=== PATIENT | male | born 1980 | race Caucasian/White ===

== ENCOUNTER 2024-04-09 21:56 | Observation (INO) ==
[2024-04-09] MEDS ORDERED: 0.9 % SODIUM CHLORIDE 1000 ML 1,000 ML IV ONE (22:29)
--- NOTE | 2024-04-09 22:49 | Emergency Department Note ---
HPI - Abdominal Pain General Chief Complaint: Abdominal Pain Stated Complaint: ABDOMINAL PAIN Time Seen by Provider: 04/09/24 22:05 Source: family Source comment: Family member/POA Mode of arrival: walk-in Limitations: physical limitation and other Limitations comment: Patient has hx of brain cancer resulting in difficulty with communication History of Present Illness HPI narrative: 43-year-old male presents to ER with complaint of right lower quadrant abdominal pain x 1 day, patient was seen here last week and admitted for abdominal pain due to intractable nausea vomiting with decreased electrolytes and dehydration. Patient was discharged on Thursday of this week reports pain came back today. MD elicited complaint: abdominal pain Pertinent past history: gastritis and past UTI Onset (ago): day(s) (1) Pain Consistency: constant Location: RUQ and RLQ Severity: moderate Quality: cramping, aching and sharp Radiation: none Migration to: no migration Exacerbating factors: movement and other (Palpation) Relieving factors: nothing Context: history of similar episodes Associated symptoms: nausea and other (Pain) Related Data Home Medications Medication Instructions Recorded Confirmed apixaban 5 mg tablet (Eliquis) 5 mg PO BID 04/05/24 04/05/24 cholecalciferol (vitamin D3) 1,250 50,000 unit PO QWEEK 04/05/24 04/05/24 mcg (50,000 unit) capsule escitalopram oxalate 20 mg tablet 20 mg PO DAILY 04/05/24 04/05/24 famotidine 20 mg tablet 20 mg PO BID 04/05/24 04/05/24 folic acid 1 mg tablet 1 mg PO DAILY 04/05/24 04/05/24 lamotrigine 150 mg tablet 150 mg PO BID 04/05/24 04/05/24 levetiracetam 500 mg tablet 500 mg PO BID 04/05/24 04/05/24 metoprolol succinate 25 mg 25 mg PO DAILY 04/05/24 04/05/24 tablet,extended release 24 hr mirtazapine 15 mg tablet 7.5 mg PO BEDTIME 04/05/24 04/05/24 nystatin 100,000 unit/gram topical 1 applic topical BID 04/05/24 04/05/24 cream olanzapine 5 mg tablet 5 mg PO BEDTIME 04/05/24 04/05/24 Allergies Allergy/AdvReac Type Severity Reaction Status Date / Time No Known Drug Allergies Allergy Verified 04/09/24 22:07 Review of Systems Status of ROS 10 or more systems reviewed and unremark able except as noted in history and below Constitutional Denies: fever, chills, change in weight, fatigue, malaise, night sweats, change in sleep pattern or other Eyes Denies: change in vision, blurry vision, blind spots, light sensitivity, eye discomfort, eye discharge, dry eyes, increased production of tears, floaters, seeing flashes or decreased night vision Ears, nose, mouth, and throat Denies: throat pain, neck pain, throat swelling, difficulty swallowing, hoarseness, mouth pain, swelling of lips/tongue, dry mouth, bad breath, ear pain, ear discharge, change in hearing, tinnitus, vertigo, nasal discharge, nasal congestion, nose bleeds or post nasal drip Cardiovascular Denies: chest pain, palpitations, edema, swelling of feet/ankles, lightheadedness, shortness of breath with exertion, shortness of breath when lying down, leg pain with exertion or bluish discoloration of hands/feet Respiratory Denies: shortness of breath, cough, wheezing, stridor, pain on inspiration, change in phlegm color, coughing up blood or chest congestion Gastrointestinal Reports: abdominal pain, nausea and vomiting; Denies: coffee grounds in vomit, heartburn, diarrhea, constipation, bloating, belching, excessive passing of gas, difficulty swallowing, feeling full early, change in bowel habits, painful bowel movements, rectal pain, rectal swelling, rectal itching, change in stool character, blood in stool, mucus in stool, white/light colored stool or fatty stool Genitourinary Denies: painful urination, urinary frequency, urinary urgency, blood in urine, genital pain, genital lesion, penile discharge, testicular pain, testicular mass, scrotal swelling, difficulty urinating, nighttime urination, change in urine stream, decreased urine ouput, difficulty starting urination, urinary hesitancy, urinary dribbling, difficulty with ejactulations, painful ejaculations, blood in semen, change in libido or difficulty impregnating Musculoskeletal Denies: back pain, neck pain, extremity pain, extremity swelling, joint pain, limited range of motion, joint swelling, muscle cramps, muscle weakness or loss of height Integumentary/Breast Denies: rash, itching, redness, skin pain, skin tenderness, skin swelling, sores, new lesion, changing lesion, non-healing lesion, changes in skin color, jaundice, stretch painting, acne, nail changes, change in hair, breast pain, breast swelling, nipple discharge, breast mass, breast skin changes or change in breast shape Neurological Denies: headache, numbness in extremities, weakness in extremities, lack of coordination, dizziness, vertigo, confusion, behavioral changes, slurred speech, difficulty communicating thoughts, seizure-like activity or involuntary movements Psychiatric Reports: anxiety; Denies: mood swings, panic attacks, change in sleep pattern, hopelessness, loss of interest, irritability, paranoia, memory loss, difficulty concentrating, visual hallucinations, auditory hallucinations, tactile hallucinations, suicidal ideation or homicidal ideation Endocrine Denies: excessive urination, excessive thirst, fatigue, cold intolerance, excessive sweating, flushing, heat intolerance, deepening of the voice, change in body appearance or change in libido Hematologic/Lymphatic Denies: easy bruising, easy bleeding or enlarged lymph nodes Allergic/Immunologic Denies: hives, throat swelling, tongue swelling, facial swelling, wheezing, itchy eyes, seasonal allergies or food intolerance [facility] Medical History (Updated 04/09/24 @ 22:16 by Izabela Dumas RN) Depression Anxiety Brain cancer Seizures Brain tumor Surgical History H/O brain surgery Social History Smoking status: current every day smoker What tobacco products do you use: cigarettes Within the past year, how often did you have a drink containing alcohol: never Within the past year, how often did you have six or more drinks on one occasion: never Score interpretation: A score less than 4 is consistent with normal alcohol consumption. Problems where you live: no known problems Highest level of school completed/degree received: high school Feel stressed/tense/nervous/anxious/difficulty sleeping: to some extent Life stressors: other (none) Life stressor details: Current medical situation Due to disability, difficulty making decisions: No Exam Constitutional: normal general appearance, distress noted (moderate), average body habitus, limitations noted (physical limitations) and alert Vital Signs - 24 hr 04/09/24 22:00 04/09/24 23:00 04/10/24 00:00 Temperature 97.9 F Pulse Rate 81 78 83 Respiratory Rate 17 16 16 Blood Pressure 144/93 149/86 105/72 Pulse Oximetry 96 95 96 Oxygen Delivery [facility] [facility] Room Air Room Air Room Air 04/10/24 01:00 04/10/24 02:00 04/10/24 03:00 Temperature Pulse Rate 75 74 68 Respiratory Rate 16 16 16 Blood Pressure 123/82 112/73 111/75 Pulse Oximetry 96 97 95 Oxygen Delivery Nj thod Room Air Room Air Room Air 04/10/24 04:00 Temperature Pulse Rate 69 Respiratory Rate Blood Pressure 124/88 Pulse Oximetry [facility] HENMT: normocephalic, head/scalp atraumatic, hearing grossly normal bilaterally, external ears normal, EACs normal, nasal mucous membranes normal, external nose normal, oral mucous membranes normal, oropharynx normal, dentition abnormal (caries) and gingiva normal Eyes: PERRL, EOMs intact bilaterally, conjunctivae normal, no scleral icterus, no papilledema, normal visual dong by confrontation, alignment normal, periorbital findings normal and no nystagmus Neck/C-Spine: visual inspection normal, trachea midline, cervical spine nontender, cervical full ROM noted and supple Lymph: no lymphadenopathy noted and no lymphedema noted Chest: inspection of chest normal, inspection of breast(s) abnormal (deferred) and palpation of breast(s) abnormal (deferred) Respiratory: breath sounds equal bilaterally, normal respiratory effort, clear to auscultation bilaterally, no wheezes, no rales, no retractions and no use of accessory muscles Cardiovascular: normal heart rate noted, regular rhythm noted, no JVD, peripheral pulses 2+ throughout and no additional abnormal heart sounds Gastrointestinal: abdomen normal to inspection, abdomen soft to palpation, tender to palpation (moderate), (RLQ) and (RUQ), nondistended, normoactive bowel sounds, no hepatosplenomegaly, no masses, no pulsatile mass, no ascites, no hernia and rectal exam abnormal (deferred) Genitourinary: no CVA tenderness and bladder normal to palpation Back/Pelvis: spine normal to inspection, no thoracic spine tenderness, no lumbar spine tenderness, thoracic spine ROM normal, lumbar spine ROM normal and no paraspinal muscle tenderness noted Extremities: normal to inspection, normal to palpation, no tenderness, full ROM, no joint enlargement and no deformity Neurology: credit charge authorizer II-XII intact, no movement abnormality noted, no focal motor deficit noted, no sensory deficits noted, gait abnormality noted (unable to access), speech normal, coordination normal, no pronator drift noted, no fasciculations noted and GCS normal Psychiatry: Mental Status Exam documented within this Exam's Psych section mental status grossly normal, oriented x3, thought process normal, cooperative, affect normal, psychomotor activity normal and memory normal Feel stressed/tense/nervous/anxious/difficulty sleeping: to some extent Life stressors: other (none) Life stressor details: Current medical situation Due to disability, difficulty making decisions: No Skin: skin color normal, no rash, no lesions, no ecchymosis noted, no wounds, no lacerations, skin turgor normal, no jaundice, no petechiae, no mottling, nails normal and no alopecia Course Course Hospital Course: 43-year-old male that presented to ER with complaint of right upper and right lower quadrant abdominal pain has been evaluated by physical exam, CBC, BMP, lipase, magnesium, urinalysis, phosphorus, CT of the abdomen pelvis with contrast, and ultrasound of the gallbladder with results as noted in charting. Patient has been found to have Dipti cystitis, cholelithiasis, urinary tract infection, hyponatremia, hypokalemia, and gross hematuria. Patient will be admitted to the MedSurg floor for IV antibiotic therapy and electrolyte replacement, patient and family agree with treatment plan. Vital Signs Vital signs: Vital Signs Temperature 97.9 F 04/09/24 22:00 Pulse Rate 81 04/09/24 22:00 Respiratory Rate 17 04/09/24 22:00 Blood Pressure 144/93 04/09/24 22:00 Pulse Oximetry 96 04/09/24 22:00 Oxygen Delivery Method Room Air 04/09/24 22:00 Temperature 97.9 F 04/09/24 22:00 Pulse Rate 69 04/10/24 04:00 Respiratory Rate 16 04/10/24 03:00 Blood Pressure 124/88 04/10/24 04:00 Pulse Oximetry 96 04/10/24 04:00 Oxygen Delivery Method Room Air 04/10/24 04:00 MDM - Abdominal Pain MDM Narrative Medical decision making narrative: Medical decision making this patient involved physical exam, CBC, BMP, phosph orus, magnesium, urinalysis, CT of the abdomen pelvis with contrast, and ultrasound the gallbladder. Differential Diagnosis Differential diagnosis: Likely abdominal pain, acute appendicitis, calculus of kidney, diverticulitis, gastroenteritis, small bowel obstruction and other (Cholelithiasis, cholecystitis) Medical Records Attestation: I reviewed the patient's medical records. Lab Data Attestation: I reviewed the patient's lab results. Labs: Lab Results 04/09/24 04/09/24 Range/Units 00:30 22:05 WBC 7.3 (3.7-9.6) K/uL RBC 5.1 (4.40-5.80) M/uL Hgb 14.0 (14.0-17.4) gm/dL Hct 42.5 (41.3-50.1) % MCV 83.9 (81.9-96.5) fl MCH 27.7 (27.6-33.7) pg MCHC 33.0 (33.0-35.7) g/dl RDW 16.4 H (11.0-14.8) % Plt Count 232 (142-355) K/uL MPV 8.5 (6.0-10.4) fl Gran % 60.5 (49.1-73.1) % Lymph % (Auto) 27.8 (17.6-39.05) % Crisp % (Auto) 7.3 (4.5-10.7) % Eos % (Auto) 4.0 (0.0-4.0) % Baso % (Auto) 0.4 (0.0-1.3) Lymph # (Auto) 2.0 (0.8-2.9) Crisp # (Auto) 0.5 (0.2-0.8) Eos # (Auto) 0.3 (0.0-0.3) Baso # (Auto) 0.0 (0.0-0.1) Absolute Gran (auto) 4.4 (2.0-6.2) Sodium 132 L (136-145) mmol/L Potassium 3.5 L (3.6-5.2) mmol/L Chloride 97.0 L (98-107) mmol/L Carbon Dioxide 25 (21-32) mmol/L Anion Gap 10.0 (4-14) mEq/L BUN 11 (7-18) mg/dL Creatinine 1.3 (0.6-1.3) mg/dL Estimated GFR 69.9 (>59.9) Glucose 83 (70-110) mg/dL Calcium 8.9 (8.5-10.1) mg/dL Phosphorus 3.1 (2.5-4.9) mg/dL Magnesium 1.9 (1.8-2.4) mg/dL Lipase 40.0 (16.0-77.0) U/L Urine Color Brown (STRAW/YELL.) Urine Appearance Cloudy (CLEAR) Ur Specific [place] 1.020 (1.001-1.035) Urine Protein 2+ (NEGATIVE) Urine Glucose (UA) Normal (NORMAL) Urine Ketones Large (NEGATIVE) Urine Occult Blood 4+ (NEG - TRACE) Urine Nitrite Negative (NEGATIVE) Urine Bilirubin Negative (NEGATIVE) Urine Urobilinogen Normal (NORMAL) Ur Leukocyte Esterase Negative (NEGATIVE) Urine RBC > 100 (0 - 5) Urine WBC 5 - 10 ( 0 - 5) Ur Epithelial Cells Few (Few/HPF) Amorphous Sediment Moderate (Negative) Urine Bacteria Few (Negative) RBC Casts 2 - 5 (Negative) Urine Mucus Moderate (Negative) Urine Trichomonas Negative (Negative) Urine Yeast Negative (Negative) Fluid pH 6.0 (5 - 9) Imaging Data Imaging ordered: CT scan - abdomen and US - abdomen (Gallbladder) Attestation: I have reviewed the pertinent imaging results. Radiologist's impression: PROCEDURE: Ultrasound Abdomen Limited Study. HISTORY: cholecystitischolecystitis; . TECHNIQUE: Pacheco-scale and color Doppler evaluation was performed of the liver, gallbladder, common bile duct, pancreas, right kidney, and inferior vena cava . COMPARISON: None. TECHNICAL QUALITY: Satisfactory. FINDINGS: Increased echogenicity involving the liver consistent with fatty infiltration with no masses or intrahepatic biliary ductal dilatation. Right lobe measures 14.9 cm. Hepatopetal flow in the portal vein. Sludge and stones in the gallbladder with normal wall at 4 mm. Positive sonographic Wiley's sign. No pericholecystic fluid. Normal common duct at 6 mm. Pancreas was poorly visualized due to bowel gas. Normal right kidney measuring 10.8 cm in length with cortex measuring 1.2 cm. Patent inferior vena cava. IMPRESSION: Cholelithiasis and sludge with acute cholecystitis. Diffuse hepatic steatosis. THIS IS AN ELECTRONICALLY VERIFIED FINAL REPORT 04/10/2024 4:43 AM - Electronically signed by Ottoniel Bryan MD PROCEDURE: CT Abdomen and Pelvis with IV Contrast. HISTORY: RLQ and pain with hematuriaRLQ and pain with hematuria; . TECHNIQUE: Axial images were performed through the abdomen and pelvis with the administration of IV contrast with multiplanar reformations . Oral contrast was notadministered . Dose reduction techniques including Automated Exposure Control (AEC) and adjustment of mA and kV were utilized .. COMPARISON: 01/08/2024. TECHNICAL QUALITY: Satisfactory. FINDINGS: Some scar versus atelectasis lung bases. Some dependent atelectasis right base. Liver, spleen, adrenals, pancreas show no abnormality. Kidneys show normal enhancement with no mass or obstruction. Pericholecystic stranding consistent with acute cholecystitis with no calcified stones and normal biliary tree. No ascites or pneumoperitoneum. Normal aorta. No lymphadenopathy. No bowel obstruction or inflammation and normal appendix. Pelvis shows no masses or free fluid and normal urinary bladder. No acute bony abnormality. IMPRESSION: Acute cholecystitis an ultrasound may be helpful. No other significant abnormality identified. THIS IS AN ELECTRONICALLY VERIFIED FINAL REPORT 04/10/2024 3:43 AM - Electronically signed by Ottoniel Bryan MD Discharge Plan Discharge Patient Disposition: Admitted As Inpatient Condition: Stable Chief Complaint: Abdominal Pain Clinical Impression: Acute cholecystitis, Hypokalemia, Cholelithiasis and acute cholecystitis without obstruction, Acute UTI, Hyponatremia, Hematuria Prescriptions: No Action Eliquis 5 mg tablet 5 mg PO BID Patient Comments: TAKE ONE TABLET BY MOUTH TWICE DAILY metoprolol succinate 25 mg tablet extended release 24 hr 25 mg PO DAILY Patient Comments: TAKE ONE TABLET BY MOUTH DAILY famotidine 20 mg tablet 20 mg PO BID Patient Comments: TAKE ONE TABLET BY MOUTH EVERY 12 hours mirtazapine 15 mg tablet 7.5 mg PO BEDTIME Patient Comments: TAKE 1/2 TABLET BY MOUTH AT BEDTIME lamotrigine 150 mg tablet 150 mg PO BID Patient Comments: TAKE ONE TABLET BY MOUTH TWICE DAILY cholecalciferol (vitamin D3) 1,250 mcg (50,000 unit) capsule 50,000 unit PO QWEEK Patient Comments: TAKE ONE CAPSULE BY MOUTH ONCE A WEEK olanzapine 5 mg tablet 5 mg PO BEDTIME Patient Comments: TAKE ONE TABLET BY MOUTH AT BEDTIME escitalopram oxalate 20 mg tablet 20 mg PO DAILY Patient Comments: TAKE ONE TABLET BY MOUTH DAILY folic acid 1 mg tablet 1 mg PO DAILY Patient Comments: TAKE ONE TABLET BY MOUTH DAILY levetiracetam 500 mg tablet 500 mg PO BID Patient Comments: TAKE ONE TABLET BY MOUTH TWICE DAILY nystatin 100,000 unit/gram cream 1 applic TOPICAL BID Patient Comments: APPLY TOPICALLY TO THE AFFECTED AREA(S) TWICE DAILY Print Language: Hungarian Referrals: Trupti Ruggiero [Primary Care Provider] - Time of Disposition: 05:10
[2024-04-09] MEDS ORDERED: MORPHINE SULFATE 4 MG/ML CARTRIDGE ONE (22:56)
[2024-04-09] MEDS ORDERED: ONDANSETRON HCL/PF 4 MG/2 ML VIAL ONE (22:56)
[2024-04-09] MEDS: 0.9 % SODIUM CHLORIDE 1000 ML 1,000 ML IV STA (22:56)
[2024-04-09] MEDS: ONDANSETRON HCL/PF 4 MG/2 ML VIAL IVP ONE (22:57)
[2024-04-09] MEDS: MORPHINE SULFATE 4 MG/ML CARTRIDGE IVP ONE (22:57)
[2024-04-09 23:03] LABS: Basophils%(Percent) Auto 0.4 (0.0-1.3); Eosinophils#(Absolute)Auto 0.3 (0.0-0.3); Granulocytes % - Auto 60.5 % (49.1-73.1); Granulocytes#(Absolute)- Auto 4.4 (2.0-6.2); Hematocrit 42.5 % (41.3-50.1); Mean Corpuscular Volume 83.9 fl (81.9-96.5); Monocytes #(Absolute)- Auto 0.5 (0.2-0.8); Monocytes %(Percent)- Auto 7.3 % (4.5-10.7); Platelet Count 232 K/uL (142-355); White Blood Count 7.3 K/uL (3.7-9.6)
[2024-04-09 23:10] LABS: Potassium 3.5 mmol/L (3.6-5.2)
[2024-04-10 01:06] LABS: Urine Appearance CLOUDY (CLEAR); Urine Blood 4+ (NEG - TRACE); Urine Color BROWN (STRAW/YELL.); Urine Urobilinogen Normal (NORMAL)
[2024-04-10 01:07] LABS: Urine Amorphous Sediment Moderate (Negative); Urine Yeast Negative (Negative)
[2024-04-10] MEDS ORDERED: KETOROLAC 30 MG/ML INJ VIAL IVP PRN (05:20)
[2024-04-10] MEDS ORDERED: ACETAMINOPHEN 1000 MG/100 ML 1,000 MG/100 ML IV.SOLN IV PRN (05:20)
[2024-04-10] MEDS ORDERED: MORPHINE SULFATE 4 MG/ML CARTRIDGE IV PRN (05:20)
[2024-04-10] MEDS ORDERED: MAGNESIUM, ALUMINUM HYDROXIDE 30 ML ORAL.SUSP PO PRN (05:20)
[2024-04-10] MEDS ORDERED: bisacodyL 10 MG SUPP.RECT PR PRN (05:20)
[2024-04-10] MEDS ORDERED: ONDANSETRON HCL/PF 4 MG/2 ML VIAL INJ PRN (05:20)
[2024-04-10] MEDS: CIPROFLOXACIN 400 MG/200ML-D5W 400 MG/200 ML PIGGYBACK IV SCH (05:30)
[2024-04-10 05:55] LABS: Potassium 3.9 mmol/L (3.6-5.2)
[2024-04-10] MEDS: MORPHINE SULFATE 4 MG/ML CARTRIDGE IVP ONE (06:45)
[2024-04-10] MEDS: 0.9 % SODIUM CHLORIDE 1000 ML 1,000 ML IV SCH (06:48)
[2024-04-10] MEDS: METRONIDAZOLE 500 MG/100ML-NS 500 MG/100 ML PIGGYBACK IV SCH (06:48)
[2024-04-10] MEDS ORDERED: NON-FORMULARY MEDICATION 1 EACH (Escitalopram Oxalate 20 MG) PO SCH (09:10)
[2024-04-10] MEDS ORDERED: LAMOTRIGINE 150 MG PO SCH ×2 (09:10→21:00)
--- NOTE | 2024-04-10 12:47 | Internal Medicine H&P ---
Internal Medicine - H&P: HPI History of Present Illness Chief complaint: CHOLECYSTITIS,CHOLELITHIASIS,UTI,HYPOKALEMIA,HYPON Narrative: Here last week with N/V and thought to have a viral GI bug. Back to ER from home last night and found to have acute cholecystitis w/o sepsis or obstruction. Doing better this AM, but still nauseated and poor appetite. Slept better last night. No other issues per patient, mother, or nurses. Review of Systems Status of ROS 10 or more systems reviewed and unremark able except as noted in history and below Constitutional Denies: fever, chills, change in weight, fatigue, malaise, night sweats, change in sleep pattern or other Eyes Denies: change in vision, blurry vision, blind spots, light sensitivity, eye discomfort, eye discharge, dry eyes, increased production of tears, floaters, seeing flashes or decreased night vision Ears, nose, mouth, and throat Denies: throat pain, neck pain, throat swelling, difficulty swallowing, hoarseness, mouth pain, swelling of lips/tongue, dry mouth, bad breath, ear pain, ear discharge, change in hearing, tinnitus, vertigo, nasal discharge, nasal congestion, nose bleeds or post nasal drip Cardiovascular Denies: chest pain, palpitations, edema, swelling of feet/ankles, lightheadedness, shortness of breath with exertion, shortness of breath when lying down, leg pain with exertion or bluish discoloration of hands/feet Respiratory Denies: shortness of breath, cough, wheezing, stridor, pain on inspiration, change in phlegm color, coughing up blood or chest congestion Gastrointestinal Reports: abdominal pain, nausea and vomiting; Denies: coffee grounds in vomit, heartburn, diarrhea, constipation, bloating, belching, excessive passing of gas, difficulty swallowing, feeling full early, change in bowel habits, painful bowel movements, rectal pain, rectal swelling, rectal itching, change in stool character, blood in stool, mucus in stool, white/light colored stool or fatty stool Genitourinary Denies: painful urination, urinary frequency, urinary urgency, blood in urine, genital pain, genital lesion, penile discharge, testicular pain, testicular mass, scrotal swelling, difficulty urinating, nighttime urination, change in urine stream, decreased urine ouput, difficulty starting urination, urinary hesitancy, urinary dribbling, difficulty with ejactulations, painful ejaculations, blood in semen, change in libido or difficulty impregnating Musculoskeletal Denies: back pain, neck pain, extremity pain, extremity swelling, joint pain, limited range of motion, joint swelling, muscle cramps, muscle weakness or loss of height Integumentary/Breast Denies: rash, itching, redness, skin pain, skin tenderness, skin swelling, sores, new lesion, changing lesion, non-healing lesion, changes in skin color, jaundice, stretch painting, acne, nail changes, change in hair, breast pain, breast swelling, nipple discharge, breast mass, breast skin changes or change in breast shape Neurological Denies: headache, numbness in extremities, weakness in extremities, lack of coordination, dizziness, vertigo, confusion, behavioral changes, slurred speech, difficulty communicating thoughts, seizure-like activity or involuntary movements Psychiatric Reports: anxiety; Denies: mood swings, panic attacks, change in sleep pattern, hopelessness, loss of interest, irritability, paranoia, memory loss, difficulty concentrating, visual hallucinations, auditory hallucinations, tactile hallucinations, suicidal ideation or homicidal ideation Endocrine Denies: excessive urination, excessive thirst, fatigue, cold intolerance, excessive sweating, flushing, heat intolerance, deepening of the voice, change in body appearance or change in libido Hematologic/Lymphatic Denies: easy bruising, easy bleeding or enlarged lymph nodes Allergic/Immunologic Denies: hives, throat swelling, tongue swelling, facial swelling, wheezing, itchy eyes, seasonal allergies or food intolerance [facility] Medical History (Updated 04/10/24 @ 12:45 by Betito Miranda MD) Depression Anxiety Brain cancer Seizures Brain tumor Surgical History H/O brain surgery Social History Smoking status: current every day smoker What tobacco products do you use: cigarettes Within the past year, how often did you have a drink containing alcohol: never Within the past year, how often did you have six or more drinks on one occasion: never Score interpretation: A score less than 4 is consistent with normal alcohol consumption. Problems where you live: no known problems Highest level of school completed/degree received: decline to answer Feel stressed/tense/nervous/anxious/difficulty sleeping: to some extent Life stressors: other (none) Life stressor details: Current medical situation Due to disability, difficulty making decisions: No Gender Identity: male Meds Home Medications and Allergies Home Medications Medication Instructions Recorded Confirmed Type apixaban 5 mg tablet (Eliquis) 5 mg PO BID 04/05/24 04/10/24 History cholecalciferol (vitamin D3) 1,250 50,000 unit PO QWEEK 04/05/24 04/10/24 History mcg (50,000 unit) capsule escitalopram oxalate 20 mg tablet 20 mg PO DAILY 04/05/24 04/10/24 History famotidine 20 mg tablet 20 mg PO BID 04/05/24 04/10/24 History folic acid 1 mg tablet 1 mg PO DAILY 04/05/24 04/10/24 History lamotrigine 150 mg tablet 150 mg PO BID 04/05/24 04/10/24 History levetiracetam 500 mg tablet 500 mg PO BID 04/05/24 04/10/24 History metoprolol succinate 25 mg 25 mg PO DAILY 04/05/24 04/10/24 History tablet,extended release 24 hr mirtazapine 15 mg tablet 7.5 mg PO BEDTIME 04/05/24 04/10/24 History nystatin 100,000 unit/gram topical 1 applic topical BID 04/05/24 04/10/24 History cream olanzapine 5 mg tablet 5 mg PO BEDTIME 04/05/24 04/10/24 History Allergies Allergy/AdvReac Type Severity Reaction Status Date / Time No Known Drug Allergies Allergy Verified 04/10/24 07:16 Exam Constitutional: normal general appearance, no apparent distress, average body habitus, no limitations and alert Vital Signs - 24 hr 04/09/24 22:00 04/09/24 23:00 04/10/24 00:00 Temperature 97.9 F Pulse Rate 81 78 83 Pulse Rate [Apical ] Respiratory Rate 17 16 16 Blood Pressure 144/93 149/86 105/72 Blood Pressure [Ri ght Arm] Pulse Oximetry 96 95 96 Oxygen Delivery Me thod Room Air Room Air Room Air 04/10/24 01:00 04/10/24 02:00 04/10/24 03:00 Temperature Pulse Rate 75 74 68 Pulse Rate [Apical ] Respiratory Rate 16 16 16 Blood Pressure 123/82 112/73 111/75 Blood Pressure [Ri ght Arm] Pulse Oximetry 96 97 95 Oxygen Delivery Me thod Room Air Room Air Room Air 04/10/24 04:00 04/10/24 05:00 04/10/24 05:20 Temperature 97.7 F Pulse Rate 69 66 Pulse Rate [Apical ] 65 Respiratory Rate 16 16 18 Blood Pressure 124/88 142/94 Blood Pressure [Ri ght Arm] 136/89 Pulse Oximetry 96 99 97 Oxygen Delivery Me thod Room Air Room Air Room Air 04/10/24 06:06 04/10/24 06:45 04/10/24 06:45 Temperature 97.7 F Pulse Rate 66 Pulse Rate [Apical ] 65 65 Respiratory Rate 16 18 18 Blood Pressure 142/94 Blood Pressure [Ri ght Arm] 136/89 Pulse Oximetry 99 97 97 Oxygen Delivery Ga thod Room Air Room Air 04/10/24 07:34 04/10/24 11:59 Temperature 98.9 F 97.6 F Pulse Rate Pulse Rate [Apical ] 64 67 Respiratory Rate 19 19 Blood Pressure Blood Pressure [Ri ght Arm] 136/84 111/78 Pulse Oximetry 97 95 Oxygen Delivery Ga thod Room Air Room Air HENMT: normocephalic, head/scalp atraumatic, hearing grossly normal bilaterally and external ears normal Eyes: PERRL and EOMs intact bilaterally Neck/C-Spine: visual inspection normal and trachea midline Respiratory: breath sounds equal bilaterally, normal respiratory effort, clear to auscultation bilaterally, no wheezes and no rales Cardiovascular: normal heart rate noted, regular rhythm noted and no murmur Gastrointestinal: abdomen normal to inspection, abdomen soft to palpation, tender to palpation (RUQ), nondistended, normoactive bowel sounds, no masses, no ascites and no hernia Neurology: no focal motor deficit noted and speech normal Psychiatry: mental status grossly normal, oriented x3, cooperative, affect normal and psychomotor abnormality noted (slow) Internal Medicine - H&P: Reslt Labs Labs: CBC WBC 7.3 K/uL (3.7-9.6) 04/09/24 22:05 RBC 5.1 M/uL (4.40-5.80) 04/09/24 22:05 Hgb 14.0 gm/dL (14.0-17.4) 04/09/24 22:05 Hct 42.5 % (41.3-50.1) 04/09/24 22:05 MCV 83.9 fl (81.9-96.5) 04/09/24 22:05 MCH 27.7 pg (27.6-33.7) 04/09/24 22:05 MCHC 33.0 g/dl (33.0-35.7) 04/09/24 22:05 RDW 16.4 % (11.0-14.8) H 04/09/24 22:05 Plt Count 232 K/uL (142-355) 04/09/24 22:05 MPV 8.5 fl (6.0-10.4) 04/09/24 22:05 Gran % 60.5 % (49.1-73.1) 04/09/24 22:05 Lymph % (Auto) 27.8 % (17.6-39.05) 04/09/24 22:05 [place] % (Auto) 7.3 % (4.5-10.7) 04/09/24 22:05 Eos % (Auto) 4.0 % (0.0-4.0) 04/09/24 22:05 Baso % (Auto) 0.4 (0.0-1.3) 04/09/24 22:05 Lymph # (Auto) 2.0 (0.8-2.9) 04/09/24 22:05 [place] # (Auto) 0.5 (0.2-0.8) 04/09/24 22:05 Eos # (Auto) 0.3 (0.0-0.3) 04/09/24 22:05 Baso # (Auto) 0.0 (0.0-0.1) 04/09/24 22:05 Absolute Gran (auto) 4.4 (2.0-6.2) 04/09/24 22:05 BMP Sodium 133 mmol/L (136-145) L 04/10/24 05:40 Potassium 3.9 mmol/L (3.6-5.2) 04/10/24 05:40 Chloride 99.0 mmol/L (98-107) 04/10/24 05:40 Carbon Dioxide 29 mmol/L (21-32) 04/10/24 05:40 Anion Gap 5.0 mEq/L (4-14) 04/10/24 05:40 BUN 10 mg/dL (7-18) 04/10/24 05:40 Creatinine 1.1 mg/dL (0.6-1.3) 04/10/24 05:40 Estimated GFR 85.4 (>59.9) 04/10/24 05:40 Glucose 78 mg/dL (70-110) 04/10/24 05:40 Calcium 8.4 mg/dL (8.5-10.1) L 04/10/24 05:40 Phosphorus 3.1 mg/dL (2.5-4.9) 04/09/24 22:05 Magnesium 1.9 mg/dL (1.8-2.4) 04/09/24 22:05 Urine Urine Color Brown (STRAW/YELL.) 04/09/24 00:30 Urine Appearance Cloudy (CLEAR) 04/09/24 00:30 Ur Specific [place] 1.020 (1.001-1.035) 04/09/24 00:30 Urine Protein 2+ (NEGATIVE) 04/09/24 00:30 Urine Glucose (UA) Normal (NORMAL) 04/09/24 00:30 Urine Ketones Large (NEGATIVE) 04/09/24 00:30 Urine Occult Blood 4+ (NEG - TRACE) 04/09/24 00:30 Urine Nitrite Negative (NEGATIVE) 04/09/24 00:30 Urine Bilirubin Negative (NEGATIVE) 04/09/24 00:30 Urine Urobilinogen Normal (NORMAL) 04/09/24 00:30 Ur Leukocyte Esterase Negative (NEGATIVE) 04/09/24 00:30 Assessment and Plan Assessment and Plan (1) Acute cholecystitis due to biliary calculus: Assessment and Plan: Cipro, Flagyl, low-fat diet, IVFs. Outpt surgery referral Code(s): K80.00 - Calculus of gallbladder with acute cholecystitis without obstruction (2) Brain cancer: Assessment and Plan: continue home meds as appropriate. Qualifiers: Malignant neoplasm of brain location: unspecified location Qualified Code(s): C71.9 - Malignant neoplasm of brain, unspecified Code(s): C71.9 - Malignant neoplasm of brain, unspecified
[2024-04-10] MEDS: ESCITALOPRAM OXALATE 10 MG TABLET PO SCH (15:51)
[2024-04-10] MEDS: lamoTRIgine 100 MG TABLET PO SCH (20:49)
[2024-04-10] MEDS: OLANZapine 5 MG TABLET PO SCH (20:50)
[2024-04-10] MEDS: levETIRAcetam 500 MG TABLET PO SCH (20:50)
[2024-04-10] MEDS: APIXABAN 2.5 MG TABLET PO SCH (20:50)
[2024-04-10] MEDS: MIRTAZAPINE 15 MG TABLET PO SCH (20:50)
[2024-04-10] MEDS: FAMOTIDINE 20 MG TABLET PO SCH (20:51)
[2024-04-10] MEDS ORDERED: levETIRAcetam 500 MG TABLET PO SCH (21:00)
[2024-04-10] MEDS ORDERED: FAMOTIDINE 20 MG TABLET PO SCH (21:00)
[2024-04-10] MEDS ORDERED: APIXABAN 2.5 MG TABLET PO SCH (21:00)
[2024-04-11 05:15] LABS: Basophils%(Percent) Auto 0.4 (0.0-1.3); Eosinophils#(Absolute)Auto 0.2 (0.0-0.3); Eosinophils%(Percent) Auto 4.4 % (0.0-4.0); Granulocytes % - Auto 43.9 % (49.1-73.1); Granulocytes#(Absolute)- Auto 2.2 (2.0-6.2); Hematocrit 33.7 % (41.3-50.1); Mean Corpuscular Volume 82.6 fl (81.9-96.5); Monocytes #(Absolute)- Auto 0.4 (0.2-0.8); Monocytes %(Percent)- Auto 8.8 % (4.5-10.7); Platelet Count 157 K/uL (142-355); White Blood Count 5.1 K/uL (3.7-9.6)
[2024-04-11 05:29] LABS: Potassium 3.3 mmol/L (3.6-5.2)
[2024-04-11] MEDS: METOPROLOL SUCCINATE 25 MG TAB.ER.24H PO SCH (08:19)
[2024-04-11] MEDS ORDERED: ESCITALOPRAM OXALATE 20 MG PO SCH (09:00)
[2024-04-11] MEDS ORDERED: METOPROLOL SUCCINATE 25 MG TAB.ER.24H PO SCH (09:00)
[2024-04-11] MEDS: POTASSIUM CHLORIDE 20 MEQ TAB.ER.PRT PO ONE (09:38)
--- NOTE | 2024-04-11 11:13 | Progress Note ---
Progress Note: Subjective Subjective Interval history: Provider will consult with patient's Oncologist in reference to Cholelithiasis and Acute Cholecystitis. Patient now expresses pain in RLQ of abdomen yesterday and denies currently. Hypoactive bowel sounds were observed. Patient has tolerated drinking water, will advance to clear liquid diet at lunch if tolerated will continue to advance. at 1 pm still awaiting oncologist call Exam Exam: Patient in low shahid's position upon entering room for exam. Two family members at bedside. Constitutional: abnormal general appearance (chronically ill) and (lethargic), no apparent distress, abnormal body habitus (overweight), limitations noted (physical limitations) and level of alertness abnormal (lethargic) Vital Signs - 24 hr 04/10/24 11:59 04/10/24 16:09 04/10/24 20:00 Temperature 97.6 F 98.2 F 98.8 F Pulse Rate [Apical ] 67 75 58 L Respiratory Rate 19 19 18 Blood Pressure [Ri ght Arm] 111/78 120/81 143/83 Pulse Oximetry 95 96 96 Oxygen Delivery Me thod Room Air Room Air Room Air 04/11/24 00:00 04/11/24 04:00 04/11/24 07:55 Temperature 98.2 F 97.9 F 98.0 F Pulse Rate [Apical ] 63 60 66 Respiratory Rate 17 18 18 Blood Pressure [Ri ght Arm] 119/84 138/84 126/80 Pulse Oximetry 95 96 96 Oxygen Delivery Me thod Room Air Room Air Room Air HENMT: normocephalic, head/scalp atraumatic, hearing grossly normal bilaterally, external ears normal, EACs normal, nasal mucous membranes normal, external nose normal, oral mucous membranes normal, oropharynx normal, dentition abnormal (caries) and gingiva normal Eyes: PERRL, EOMs intact bilaterally, conjunctivae normal, no scleral icterus, no papilledema, normal visual dong by confrontation, alignment normal, periorbital findings normal and no nystagmus Neck/C-Spine: visual inspection normal, trachea midline, cervical spine nontender, cervical full ROM noted and supple Lymph: no lymphadenopathy noted and no lymphedema noted Chest: inspection of chest normal, inspection of breast(s) abnormal (deferred) and palpation of breast(s) abnormal (deferred) Respiratory: breath sounds equal bilaterally, normal respiratory effort, clear to auscultation bilaterally, no wheezes, no rales, no retractions and no use of accessory muscles Cardiovascular: normal heart rate noted, regular rhythm noted, no gallop, no rub, no murmur, no JVD, no clicks, peripheral pulses 2+ throughout and no additional abnormal heart sounds Gastrointestinal: abdomen normal to inspection, abdomen soft to palpation, tender to palpation (RLQ), nondistended, normoactive bowel sounds, no hepatosplenomegaly, no masses, no pulsatile mass, no ascites, no hernia and rectal exam abnormal (deferred) Genitourinary: no CVA tenderness, bladder normal to palpation and external appearance normal Back/Pelvis: spine normal to inspection, no thoracic spine tenderness, no lumbar spine tenderness, thoracic spine ROM normal, lumbar spine ROM normal and no paraspinal muscle tenderness noted Extremities: normal to inspection, normal to palpation, no tenderness, full ROM, no joint enlargement and no deformity Neurology: cranial nerve findings as noted:, no movement abnormality noted, focal motor deficit noted, sensory deficit noted, deep tendon reflexes 2+ bilaterally, gait abnormality noted (unable to access), speech abnormality noted, coordination abnormality noted and GCS normal Psychiatry: Mental Status Exam documented within this Exam's Psych section mental status grossly normal, oriented x3, thought process abnormality noted, cooperative, affect abnormality noted, psychomotor abnormality noted (slow) and memory normal poor details on condition and history often answers questions wrong and does not talk well enough to give questions or history Skin: skin color normal, no rash, no lesions, ecchymosis noted, no wounds, no lacerations, skin turgor abnormal, no jaundice, no petechiae, no mottling, nails abnormality noted and no alopecia Progress Note: Objective Labs Labs: CBC WBC 5.1 K/uL (3.7-9.6) 04/11/24 05:00 RBC 4.1 M/uL (4.40-5.80) L 04/11/24 05:00 Hgb 11.5 gm/dL (14.0-17.4) L 04/11/24 05:00 Hct 33.7 % (41.3-50.1) L 04/11/24 05:00 MCV 82.6 fl (81.9-96.5) 04/11/24 05:00 MCH 28.1 pg (27.6-33.7) 04/11/24 05:00 MCHC 34.0 g/dl (33.0-35.7) 04/11/24 05:00 RDW 15.8 % (11.0-14.8) H 04/11/24 05:00 Plt Count 157 K/uL (142-355) 04/11/24 05:00 MPV 7.8 fl (6.0-10.4) 04/11/24 05:00 Gran % 43.9 % (49.1-73.1) L 04/11/24 05:00 Lymph % (Auto) 42.5 % (17.6-39.05) H 04/11/24 05:00 [place] % (Auto) 8.8 % (4.5-10.7) 04/11/24 05:00 Eos % (Auto) 4.4 % (0.0-4.0) H 04/11/24 05:00 Baso % (Auto) 0.4 (0.0-1.3) 04/11/24 05:00 Lymph # (Auto) 2.1 (0.8-2.9) 04/11/24 05:00 [place] # (Auto) 0.4 (0.2-0.8) 04/11/24 05:00 Eos # (Auto) 0.2 (0.0-0.3) 04/11/24 05:00 Baso # (Auto) 0.0 (0.0-0.1) 04/11/24 05:00 Absolute Gran (auto) 2.2 (2.0-6.2) 04/11/24 05:00 BMP Sodium 134 mmol/L (136-145) L 04/11/24 05:00 Potassium 3.3 mmol/L (3.6-5.2) L 04/11/24 05:00 Chloride 101.0 mmol/L (98-107) 04/11/24 05:00 Carbon Dioxide 24 mmol/L (21-32) 04/11/24 05:00 Anion Gap 9.0 mEq/L (4-14) 04/11/24 05:00 BUN 6 mg/dL (7-18) L 04/11/24 05:00 Creatinine 0.9 mg/dL (0.6-1.3) 04/11/24 05:00 Estimated GFR 108.7 (>59.9) 04/11/24 05:00 Glucose 72 mg/dL (70-110) 04/11/24 05:00 Calcium 8.3 mg/dL (8.5-10.1) L 04/11/24 05:00 Phosphorus 3.4 mg/dL (2.5-4.9) 04/11/24 05:00 Magnesium 1.9 mg/dL (1.8-2.4) 04/11/24 05:00 Urine Urine Color Brown (STRAW/YELL.) 04/09/24 00:30 Urine Appearance Cloudy (CLEAR) 04/09/24 00:30 Ur Specific [place] 1.020 (1.001-1.035) 04/09/24 00:30 Urine Protein 2+ (NEGATIVE) 04/09/24 00:30 Urine Glucose (UA) Normal (NORMAL) 04/09/24 00:30 Urine Ketones Large (NEGATIVE) 04/09/24 00:30 Urine Occult Blood 4+ (NEG - TRACE) 04/09/24 00: Urine Nitrite Negative (NEGATIVE) 04/09/24 00:30 Urine Bilirubin Negative (NEGATIVE) 04/09/24 00:30 Urine Urobilinogen Normal (NORMAL) 04/09/24 00:30 Ur Leukocyte Esterase Negative (NEGATIVE) 04/09/24 00:30 Imaging Gall Bladder US : Radiologist's impression: Ultrasound Abdomen Limited Study. Date of Service: 04/10/24 HISTORY: cholecystitischolecystitis; . TECHNIQUE: [place]-scale and color Doppler evaluation was performed of the liver, gallbladder, common bile duct, pancreas, right kidney, and inferior vena cava . COMPARISON: None. TECHNICAL QUALITY: Satisfactory. FINDINGS: Increased echogenicity involving the liver consistent with fatty infiltration with no masses or intrahepatic biliary ductal dilatation. Right lobe measures 14.9 cm. Hepatopetal flow in the portal vein. Sludge and stones in the gallbladder with normal wall at 4 mm. Positive sonographic Wiley's sign. No pericholecystic fluid. Normal common duct at 6 mm. Pancreas was poorly visualized due to bowel gas. Normal right kidney measuring 10.8 cm in length with cortex measuring 1.2 cm. Patent inferior vena cava. IMPRESSION: Cholelithiasis and sludge with acute cholecystitis. Diffuse hepatic steatosis. CT Abdomen and Pelvis with IV Contrast. Date of Service: 04/10/24 HISTORY: RLQ and pain with hematuriaRLQ and pain with hematuria; . TECHNIQUE: Axial images were performed through the abdomen and pelvis with the administration of IV contrast with multiplanar reformations . Oral contrast was notadministered . Dose reduction techniques including Automated Exposure Control (AEC) and adjustment of mA and kV were utilized .. COMPARISON: 01/08/2024. TECHNICAL QUALITY: Satisfactory. FINDINGS: Some scar versus atelectasis lung bases. Some dependent atelectasis right base. Liver, spleen, adrenals, pancreas show no abnormality. Kidneys show normal enhancement with no mass or obstruction. Pericholecystic stranding consistent with acute cholecystitis with no calcified stones and normal biliary tree. No ascites or pneumoperitoneum. Normal aorta. No lymphadenopathy. No bowel obstruction or inflammation and normal appendix. Pelvis shows no masses or free fluid and normal urinary bladder. No acute bony abnormality. IMPRESSION: Acute cholecystitis an ultrasound may be helpful. No other significant abnormality identified. Progress Note: A&P Assessment and Plan (1) Acute cholecystitis due to biliary calculus: Assessment and Plan: Cipro, Flagyl, low-fat diet, IVFs. Outpt surgery referral Trying to contact oncologist to see if he has any thoughts on patient undergoing gallbladder surgery (2) Brain cancer: Assessment and Plan: continue home meds as appropriate. next Chemo scheduled for 04/18/2024 per family Qualifiers: Malignant neoplasm of brain location: unspecified location Qualified Code(s): C71.9 - Malignant neoplasm of brain, unspecified Plan Sodium Chloride 1,000 mls @ 150 mls/hr IV CONT Ciprofloxacin/Dextrose 400 mg in 200 mls/hr IV Q12H Metronidazole 500 mg in 100 mls @ 100 mls/hr IV Q8H Mirtazapine 7.5 mg PO BEDTIME Olanzapine 5 mg PO BEDTIME Apixaban 5 mg PO BID Famotidine 20 mg PO BID Levetiracetam 500 mg PO BID Metoprolol Succinate 25 mg PO DAILY Escitalopram Oxalate 20 mg PO DAILY Lamotrigine 150 mg PO BID Magnesium Hydroxide 30 ml PO DAILY PRN Bisacodyl [address] DAILY PRN Ketorolac Tromethamine 15 mg IVP Q6H PRN Morphine Sulfate 4 mg IV Q6H PRN Ondansetron Hcl 4 mg INJ Q6H PRN Acetaminophen 1,000 mg in 100 mls @ 400 mls/hr IV Q6H PRN Consulting with patient's Oncologist Fall Risk Details [place] Fall Scale Risk Level: Moderate Fall Risk Current Medications: Current Medications Apixaban (Apixaban 2.5 Mg Tablet) 5 mg PO BID [facility] Last Admin: 04/11/24 08:19 Dose: 5 mg Bisacodyl (Bisacodyl 10 Mg Supp.Rect) [address] DAILY PRN PRN Reason: Constipation Escitalopram Oxalate (Escitalopram Oxalate 10 Mg Tablet) 20 mg PO DAILY [facility] Last Admin: 04/11/24 08:20 Dose: 20 mg Famotidine (Famotidine 20 Mg Tablet) 20 mg PO BID [facility] Last Admin: 04/11/24 08:19 Dose: 20 mg Sodium Chloride (Sodium Chloride) 1,000 mls @ 150 mls/hr IV CONT [facility] Last Admin: 04/11/24 09:57 Dose: 150 mls/hr Acetaminophen (Acetaminophen 1000 Mg/100 Ml) 1,000 mg in 100 mls @ 400 mls/hr IV Q6H PRN PRN Reason: Pain Ciprofloxacin/Dextrose (Ciprofloxacin 400 Mg/200ml-D5w) 400 mg in 200 mls @ 200 mls/hr IV Q12H [facility] Last Admin: 04/11/24 04:46 Dose: 200 mls/hr Metronidazole (Metronidazole 500 Mg/100ml-Ns) 500 mg in 100 mls @ 100 mls/hr IV Q8H [facility] Last Admin: 04/11/24 04:45 Dose: 100 mls/hr Ketorolac Tromethamine (Ketorolac 30 Mg/Ml Inj Vial) 15 mg IVP Q6H PRN PRN Reason: Moderate Pain SCALE 5-7 Stop: 04/15/24 05:19 Lamotrigine (Lamotrigine 100 Mg Tablet) 150 mg PO BID [facility] Last Admin: 04/11/24 08:19 Dose: 150 mg Levetiracetam (Levetiracetam 500 Mg Tablet) 500 mg PO BID [facility] Last Admin: 04/11/24 08:20 Dose: 500 mg Magnesium Hydroxide (Magnesium, Aluminum Hydroxide 30 Ml Oral.Susp) 30 ml PO DAILY PRN PRN Reason: Heartburn Metoprolol Succinate (Metoprolol Succinate 25 Mg Tab.Er.24h) 25 mg PO DAILY [facility] Last Admin: 04/11/24 08:19 Dose: 25 mg Mirtazapine (Mirtazapine 15 Mg Tablet) 7.5 mg PO BEDTIME [facility] Last Admin: 04/10/24 20:50 Dose: 7.5 mg Morphine Sulfate (Morphine Sulfate 4 Mg/Ml Cartridge) 4 mg IV Q6H PRN PRN Reason: Severe Pain SCALE 8-10 Olanzapine (Olanzapine 5 Mg Tablet) 5 mg PO BEDTIME [facility] Last Admin: 04/10/24 20:50 Dose: 5 mg Ondansetron HCl (Ondansetron Hcl/Pf 4 Mg/2 Ml Vial) 4 mg INJ Q6H PRN PRN Reason: Nausea And Vomiting Time Spent With Patient Time: Total time spent is greater than 50% in coordination of care (as documented) at patient's floor/unit and/or counseling patient:
[2024-04-11] MEDS: FOLIC ACID 1 MG TABLET PO SCH (13:26)
[2024-04-12 03:30] VITALS: RESP 18
[2024-04-12 05:35] LABS: Basophils%(Percent) Auto 0.4 (0.0-1.3); Eosinophils#(Absolute)Auto 0.2 (0.0-0.3); Eosinophils%(Percent) Auto 3.8 % (0.0-4.0); Granulocytes % - Auto 55.1 % (49.1-73.1); Granulocytes#(Absolute)- Auto 2.9 (2.0-6.2); Hematocrit 32.7 % (41.3-50.1); Mean Corpuscular Volume 82.6 fl (81.9-96.5); Monocytes #(Absolute)- Auto 0.3 (0.2-0.8); Monocytes %(Percent)- Auto 5.8 % (4.5-10.7); Platelet Count 164 K/uL (142-355); White Blood Count 5.3 K/uL (3.7-9.6)
[2024-04-12 05:52] LABS: Potassium 3.1 mmol/L (3.6-5.2)
[2024-04-12] MEDS: CHOLECALCIFEROL PO SCH (09:53)
[2024-04-12] MEDS: [UNRECOGNIZED DRUG - OTHER] PO SCH (09:53)
[2024-04-12] MEDS: POTASSIUM CHLORIDE IN WATER 10 MEQ/100 ML PIGGYBACK IV ONE ×2 (09:54→10:53)
[2024-04-12] MEDS: MAGNESIUM OXIDE 400 MG TABLET PO ONE (09:55)
[2024-04-12] MEDS: POTASSIUM CHLORIDE 20 MEQ TAB.ER.PRT PO ONE (09:55)
[2024-04-12 12:24] VITALS: BP 130/89; PULSE 60; TEMP 98.3
--- NOTE | 2024-04-12 15:32 | Discharge Summary ---
DS: Providers Provider Date of admission: 04/10/24 05:20 Primary care physician: Trupti Ruggiero Admitting clinician: Aleksandar Hanson Attending physician on admission: Betito Miranda Attending physician on discharge: Sahara Calhoun Discharging clinician: Sahara Calhoun Anticipated date of discharge: 04/12/24 DS: Diagnosis Discharge Diagnosis (1) Acute cholecystitis due to biliary calculus: (2) Radiation therapy induced brain necrosis: (3) Intractable nausea and vomiting: (4) Dehydration: (5) Hypokalemia: (6) Hypophosphatemia: (7) Brain cancer: Assessment and plan: history not currently active at this time per Dr Santamaria Oncologist Qualifiers: Malignant neoplasm of brain location: unspecified location Qualified Code(s): C71.9 - Malignant neoplasm of brain, unspecified (8) Hypoalbuminemia: Assessment and plan: t (9) Acute gastritis without bleeding: Qualifiers: Gastritis type: other gastritis Qualified Code(s): K29.00 - Acute gastritis without bleeding Plan Discharge patient home. DS: Summary Hospital Course Hospital Course: 43-year-old male that presented to ER with complaint of right upper and right lower quadrant abdominal pain has been evaluated by physical exam, CBC, BMP, lipase, magnesium, urinalysis, phosphorus, CT of the abdomen pelvis with contrast, and ultrasound of the gallbladder with results as noted in charting. Patient has been found to have Dipti cystitis, cholelithiasis, urinary tract infection, hyponatremia, hypokalemia, and gross hematuria. Patient will be admitted to the [facility] floor for IV antibiotic therapy and electrolyte replacement, patient and family agree with treatment plan. Day two of hospital stay, patient abdominal pain has improved and is no longer tender to palpitation. Nurse informed provider the patient has experienced some diarrhea this a.m. Provider educated the patient and family member the loose stools could be a side effect of medications started previous day. Patient labs and symptoms have overall improved and ready to be discharged home. Provider consulted with Dr. Jacoby Santamaria, who recommends at least one month without chemo/radiation prior to surgery and cannot start back chemo/radiation until once month post surgery. Patient has been diagnosed with Radionecrosis. Follow up with technology integration specialist as soon as able to get in. Status at Discharge Functional status at discharge: independent ambulation Overall status at discharge: patient is back to baseline Time Spent with Patient Time attestation: Total time spent providing and/or coordinating discharge services: Time spent: greater than 30 minutes Exam Exam: Patient in low shahid's position upon entering room for exam. Two family member at bedside. Constitutional: abnormal general appearance (chronically ill) and (lethargic), no apparent distress, abnormal body habitus (overweight), limitations noted (physical limitations) and level of alertness abnormal (lethargic) Vital Signs - 24 hr 04/11/24 16:00 04/11/24 19:41 04/11/24 23:26 Temperature 98.3 F 98.2 F 98.6 F Pulse Rate [Apical ] 61 60 57 L Respiratory Rate 18 19 17 Blood Pressure [Ri ght Arm] 139/86 121/78 144/80 Pulse Oximetry 96 98 95 Oxygen Delivery Me thod Room Air Room Air Room Air 04/12/24 03:30 04/12/24 08:00 04/12/24 12:00 Temperature 98.8 F 97.9 F 98.3 F Pulse Rate [Apical ] 58 L 69 60 Respiratory Rate 18 18 18 Blood Pressure [Ri ght Arm] 140/81 133/84 130/89 Pulse Oximetry 95 96 97 Oxygen Delivery Me thod Room Air Room Air Room Air HENMT: normocephalic, head/scalp atraumatic, hearing grossly normal bilaterally, external ears normal, EACs normal, nasal mucous membranes normal, external nose normal, oral mucous membranes normal, oropharynx normal, dentition abnormal (caries) and gingiva normal Eyes: PERRL, EOMs intact bilaterally, conjunctivae normal, no scleral icterus, no papilledema, normal visual dong by confrontation, alignment normal, periorbital findings normal and no nystagmus Neck/C-Spine: visual inspection normal, trachea midline, cervical spine nontender, cervical full ROM noted and supple Lymph: no lymphadenopathy noted and no lymphedema noted Chest: inspection of chest normal, inspection of breast(s) abnormal (deferred) and palpation of breast(s) abnormal (deferred) Respiratory: breath sounds equal bilaterally, normal respiratory effort, clear to auscultation bilaterally, no wheezes, no rales, no retractions and no use of accessory muscles Cardiovascular: normal heart rate noted, regular rhythm noted, no gallop, no rub, no murmur, no JVD, no clicks, peripheral pulses 2+ throughout and no additional abnormal heart sounds Gastrointestinal: abdomen normal to inspection, abdomen soft to palpation, nontender to palpation, nondistended, normoactive bowel sounds, no hepatosplenomegaly, no masses, no pulsatile mass, no ascites, no hernia and rectal exam abnormal (deferred) Genitourinary: no CVA tenderness, bladder normal to palpation and external appearance normal Back/Pelvis: spine normal to inspection, no thoracic spine tenderness, no lumbar spine tenderness, thoracic spine ROM normal, lumbar spine ROM normal and no paraspinal muscle tenderness noted Extremities: normal to inspection, normal to palpation, no tenderness, full ROM, no joint enlargement and no deformity Neurology: cranial nerve findings as noted:, no movement abnormality noted, focal motor deficit noted, sensory deficit noted, deep tendon reflexes 2+ bilaterally, gait abnormality noted (unable to access), speech abnormality noted, coordination abnormality noted, no pronator drift noted, no fasciculations noted and GCS normal Psychiatry: Mental Status Exam documented within this Exam's Psych section mental status grossly normal, oriented x3, thought process abnormality noted, cooperative, affect abnormality noted, psychomotor abnormality noted (slow) and memory normal poor details on condition and history often answers questions wrong and does not talk well enough to give questions or history Skin: skin color normal, no rash, no lesions, ecchymosis noted, no wounds, no lacerations, skin turgor abnormal, no jaundice, no petechiae, no mottling, nails abnormality noted and no alopecia DS: Data Data Completed and Pending Labs on day of discharge: Labs from last 24 hours 04/12/24 05:15 WBC 5.3 RBC 4.0 L Hgb 11.2 L Hct 32.7 L MCV 82.6 MCH 28.1 MCHC 34.1 RDW 15.5 H Plt Count 164 MPV 7.8 Gran % 55.1 Lymph % (Auto) 34.9 Falls % (Auto) 5.8 Eos % (Auto) 3.8 Baso % (Auto) 0.4 Lymph # (Auto) 1.9 Falls # (Auto) 0.3 Eos # (Auto) 0.2 Baso # (Auto) 0.0 Absolute Gran (auto) 2.9 Sodium 134 L Potassium 3.1 L Chloride 103.0 Carbon Dioxide 22 Anion Gap 9.0 BUN 2 L Creatinine 0.8 Estimated GFR 112.6 Glucose 74 Calcium 8.1 L Phosphorus 3.[address] scan - abdomen: Radiologist's impression: CT Abdomen and Pelvis with IV Contrast. Date of Service: 04/10/24 HISTORY: RLQ and pain with hematuriaRLQ and pain with hematuria; . TECHNIQUE: Axial images were performed through the abdomen and pelvis with the administration of IV contrast with multiplanar reformations . Oral contrast was notadministered . Dose reduction techniques including Automated Exposure Control (AEC) and adjustment of mA and kV were utilized .. COMPARISON: 01/08/2024. TECHNICAL QUALITY: Satisfactory. FINDINGS: Some scar versus atelectasis lung bases. Some dependent atelectasis right base. Liver, spleen, adrenals, pancreas show no abnormality. Kidneys show normal enhancement with no mass or obstruction. Pericholecystic stranding consistent with acute cholecystitis with no calcified stones and normal biliary tree. No ascites or pneumoperitoneum. Normal aorta. No lymphadenopathy. No bowel ob struction or inflammation and normal appendix. Pelvis shows no masses or free fluid and normal urinary bladder. No acute bony abnormality. IMPRESSION: Acute cholecystitis an ultrasound may be helpful. No other significant abnormality identified. Gall Bladder US: Radiologist's impression: Ultrasound Abdomen Limited Study. Date of Service: 04/10/24 HISTORY: cholecystitischolecystitis; . TECHNIQUE: Pacheco-scale and color Doppler evaluation was performed of the liver, gallbladder, common bile duct, pancreas, right kidney, and inferior vena cava . COMPARISON: None. TECHNICAL QUALITY: Satisfactory. FINDINGS: Increased echogenicity involving the liver consistent with fatty infiltration with no masses or intrahepatic biliary ductal dilatation. Right lobe measures 14.9 cm. Hepatopetal flow in the portal vein. Sludge and stones in the gallbladder with normal wall at 4 mm. Positive sonographic Wiley's sign. No pericholecystic fluid. Normal common duct at 6 mm. Pancreas was poorly visualized due to bowel gas. Normal right kidney measuring 10.8 cm in length with cortex measuring 1.2 cm. Patent inferior vena cava. IMPRESSION: Cholelithiasis and sludge with acute cholecystitis. Diffuse hepatic steatosis. Discharge Plan Discharge Disposition: Home, Self-Care Condition: Improved Discharge Medications: New ciprofloxacin HCl [Cipro] 500 mg tablet 500 mg PO Q12H Qty: 14 0RF metronidazole 500 mg tablet 500 mg PO Q8H Qty: 20 0RF Continued Eliquis 5 mg tablet 5 mg PO BID Patient Comments: TAKE ONE TABLET BY MOUTH TWICE DAILY metoprolol succinate 25 mg tablet extended release 24 hr 25 mg PO DAILY Patient Comments: TAKE ONE TABLET BY MOUTH DAILY famotidine 20 mg tablet 20 mg PO BID Patient Comments: TAKE ONE TABLET BY MOUTH EVERY 12 hours mirtazapine 15 mg tablet 7.5 mg PO BEDTIME Patient Comments: TAKE 1/2 TABLET BY MOUTH AT BEDTIME lamotrigine 150 mg tablet 150 mg PO BID Patient Comments: TAKE ONE TABLET BY MOUTH TWICE DAILY cholecalciferol (vitamin D3) 1,250 mcg (50,000 unit) capsule 50,000 unit PO QWEEK Patient Comments: TAKE ONE CAPSULE BY MOUTH ONCE A WEEK olanzapine 5 mg tablet 5 mg PO BEDTIME Patient Comments: TAKE ONE TABLET BY MOUTH AT BEDTIME escitalopram oxalate 20 mg tablet 20 mg PO DAILY Patient Comments: TAKE ONE TABLET BY MOUTH DAILY folic acid 1 mg tablet 1 mg PO DAILY Patient Comments: TAKE ONE TABLET BY MOUTH DAILY levetiracetam 500 mg tablet 500 mg PO BID Patient Comments: TAKE ONE TABLET BY MOUTH TWICE DAILY nystatin 100,000 unit/gram cream 1 applic TOPICAL BID Patient Comments: APPLY TOPICALLY TO THE AFFECTED AREA(S) TWICE DAILY Discharge Orders: Discharge Order (Routine); Ordered 04/12/24 Ordered By: Sahara Calhoun Activity: increase activity as tolerated Diet: other Diet Detail: encourage water and gallbladder diet, Ensure bid at least if patient gallbladder can tolerate Interventions: Discharge Assessment Last Done: 04/12/24 13:41 MED/SURG & ICU Observation Charge Sheet Last Done: 04/12/24 13:45 Activity Restrictions/Additional Instructions: 5 small gallbladder diet meals and increase water intake Follow up Surgeon for gallbladder removal after 04/21/2024 and last chemo was 03/21/2024 and next will be 30 days after surgery Oncology Dr. Santamaria in [place] will contact family for his next appointment following the surgery Ensure bid at least if patient gallbladder can tolerate Forms: Portal/Health Info Access Inst Follow-Ups: Trupti Ruggiero [Primary Care Provider] -
== END 2024-04-12 16:03 | disposition home or self-care (01) ==
LOC: ED 21:56 → MS 04-10 05:20 → INTOOBSV 04-10 05:20 → MS 04-10 06:06
PROVIDERS: ADMIT Nurse Practitioner Family; ATTEND Family Medicine
DX: E88.09 Other disorders of plasma-protein metabolism, not elsewhere classified; R10.31 Right lower quadrant pain; R31.9 Hematuria, unspecified; Y84.2 Radiological procedure and radiotherapy as the cause of abnormal reaction of the patient, or of later complication, without mention of misadventure at the time of the procedure; C71.9 Malignant neoplasm of brain, unspecified; E83.39 Other disorders of phosphorus metabolism; K80.00 Calculus of gallbladder with acute cholecystitis without obstruction; E87.1 Hypo-osmolality and hyponatremia; N39.0 Urinary tract infection, site not specified; R11.2 Nausea with vomiting, unspecified; E87.6 Hypokalemia; R10.11 Right upper quadrant pain; E86.0 Dehydration; K29.00 Acute gastritis without bleeding